=== PATIENT | male | born 1965 | race Caucasian/White ===

== ENCOUNTER 2019-04-12 10:29 | Inpatient (IN) ==
[2019-04-12 12:08] LABS: Hematocrit 44.3 % (37.5-50.1); Hemoglobin 15.6 g/dL (12.9-16.9); Mean Corpuscular HGB Conc 35.2 g/dL (31.6-35.5); Mean Corpuscular Hemoglobin 32.5 pg (28.0-33.3); Mean Corpuscular Volume 92.3 fL (83.0-100.0); Mean Platelet Volume 8.7 fL (9.4-12.4); Platelet Count 210 K/mcL (140-400)
[2019-04-12 12:17] LABS: Prothrombin Time 11.5 Seconds (9.4-12.1)
[2019-04-12 12:19] LABS: Activated Partial Thrombo Time 31.9 Seconds (26.0-36.0)
[2019-04-12 12:29] LABS: BUN/Creatinine Ratio 20 (6-26); Blood Urea Nitrogen 18 mg/dL (6-20); Calcium 9.1 mg/dL (8.6-10.3); Carbon Dioxide 26 mEq/L (23-29); Chloride 105 mEq/L (98-107); Glucose 121 mg/dL (70-105); Osmolality,Calculated 289 (280-300); Sodium 138 mEq/L (136-145); Troponin I < 0.03 ng/mL (< 0.04); eGFR For African Americans > 60 (> 60); eGFR For Non-African Americans > 60 (> 60)
[2019-04-12] MEDS ORDERED: Isovue-370 500 ML BOTTLE IVP ONE (12:58)
[2019-04-12] MEDS ORDERED: Haloperidol Lactate 5 MG/ML VIAL IVP ONE (14:17)
[2019-04-12] MEDS ORDERED: *HR* LORazepam 2 MG/ML VIAL IVP ONE (14:17)
[2019-04-12] MEDS ORDERED: Aspirin 325 MG TABLET PO ONE (15:54)
[2019-04-12] MEDS ORDERED: Ondansetron 4 MG/2 ML VIAL IVP PRN (17:15)
[2019-04-12] MEDS ORDERED: Naloxone 0.4 MG/ML INJ IVP PRN (17:15)
[2019-04-12] MEDS ORDERED: Mag Hydrox/Al Hydrox/Simeth 30 ML UDC PO PRN (17:15)
[2019-04-12] MEDS ORDERED: *HR* Promethazine 25 MG/ML VIAL IVP PRN (17:15)
[2019-04-12] MEDS ORDERED: MOM Conc 10 ML UD.LIQ PO PRN (17:15)
[2019-04-12] MEDS ORDERED: Acetaminophen 325 MG TABLET PO PRN (17:15)
[2019-04-12] MEDS ORDERED: traMADol 50 MG TABLET PO PRN (17:15)
[2019-04-12] MEDS ORDERED: *HR* Heparin 5,000 UNIT/ML VIAL SQ SCH (18:00)
[2019-04-13 02:32] LABS: Basophils % 0.5 %; Eosinophils # 0.2 K/mcL (0.0-0.6); Eosinophils % 3.2 %; Hematocrit 43.4 % (37.5-50.1); Hemoglobin 15.4 g/dL (12.9-16.9); Immature Granulocytes % 0.2 % (0-4); Lymphocytes # 2.1 K/mcL (0.6-4.6); Lymphocytes % 34.3 %; Mean Corpuscular HGB Conc 35.5 g/dL (31.6-35.5); Mean Corpuscular Hemoglobin 32.8 pg (28.0-33.3); Mean Corpuscular Volume 92.5 fL (83.0-100.0); Mean Platelet Volume 8.9 fL (9.4-12.4); Monocytes # 0.6 K/mcL (0.0-1.3); Monocytes % 9.7 %; Neutrophils # 3.1 K/mcL (1.6-8.9); Platelet Count 209 K/mcL (140-400); Red Blood Count 4.69 M/mcL (4.19-5.50); Red Cell Distribution Width 13.1 % (11.5-14.5); Segmented Neutrophils % 52.1 %
[2019-04-13 02:38] LABS: Prothrombin Time 11.6 Seconds (9.4-12.1)
[2019-04-13 02:50] LABS: BUN/Creatinine Ratio 20 (6-26); Blood Urea Nitrogen 18 mg/dL (6-20); Calcium 8.7 mg/dL (8.6-10.3); Carbon Dioxide 23 mEq/L (23-29); Chloride 108 mEq/L (98-107); Chol/HDL Ratio 4.9 (0-4.9); Cholesterol 175 mg/dL (< 200); Glucose 94 mg/dL (70-105); HDL Cholesterol 36 mg/dL (40-59); LDL Cholesterol,Calculated 104 mg/dL (0-99); Osmolality,Calculated 286 (280-300); Potassium 3.8 mEq/L (3.5-5.1); Sodium 137 mEq/L (136-145); Triglycerides 173 mg/dL (< 150); eGFR For African Americans > 60 (> 60); eGFR For Non-African Americans > 60 (> 60)
[2019-04-13 02:52] LABS: Alanine Aminotransferase 15 Units/L (7-52); Albumin 3.8 g/dL (3.5-5.7); Albumin/Globulin Ratio 1.5 (1.1-2.2); Alkaline Phosphatase 72 Units/L (34-104); Aspartate Amino Transferase 11 Units/L (13-39); BUN/Creatinine Ratio 18 (6-26); Bilirubin,Total 0.5 mg/dL (0.3-1.0); Blood Urea Nitrogen 18 mg/dL (6-20); Calcium 8.9 mg/dL (8.6-10.3); Carbon Dioxide 24 mEq/L (23-29); Chloride 106 mEq/L (98-107); Chol/HDL Ratio 5.2 (0-4.9); Cholesterol 173 mg/dL (< 200); Globulin 2.6 g/dL (2.4-3.5); Glucose 99 mg/dL (70-105); HDL Cholesterol 33 mg/dL (40-59); LDL Cholesterol,Calculated 105 mg/dL (0-99); Osmolality,Calculated 288 (280-300); Potassium 3.8 mEq/L (3.5-5.1); Sodium 138 mEq/L (136-145); Total Protein 6.4 g/dL (6.4-8.9); Triglycerides 175 mg/dL (< 150); eGFR For African Americans > 60 (> 60); eGFR For Non-African Americans > 60 (> 60)
[2019-04-13 02:53] LABS: Troponin I < 0.03 ng/mL (< 0.04)
[2019-04-13 05:54] VITALS: BP 126/75
[2019-04-13 06:49] LABS: Estimated Average Glucose 120 mg/dl
[2019-04-13] MEDS ORDERED: Aspirin Enteric Coated 81 MG Tablet PO SCH (09:00)
[2019-04-13] MEDS ORDERED: Venlafaxine XR (24 HR) 150 MG CAP.ER.24H PO SCH (12:38)
[2019-04-14] MEDS ORDERED: Venlafaxine XR (24 HR) 150 MG CAP.ER.24H PO SCH (09:00)
== END 2019-04-13 15:46 | disposition left against medical advice (07) | DRG 65 ==
LOC: EMEROOARM 10:29 → 2NENU 10:29 → EMEROOARM 12:34 → SUATTDRO 17:09 → 2NENU 17:51
PROVIDERS: ADMIT Internal Medicine; ATTEND Internal Medicine